=== PATIENT | female | born 1930 | race Caucasian/White ===

== ENCOUNTER 2017-06-15 13:29 | Emergency (ER) | payer OTHER, BC ==
[~2017-06-15] VITALS: Ht 142.2 cm; Wt 62.2 kg
[~2017-06-15 13:29] MED LIST: ACCUPRIL20 MG PO; FLEXERIL10 MG PO; FLOVENT 11120 INHALA IH; LEVAQUIN750 MG PO; PRAVACHOL40 MG PO; PROAIR HFA8.5 GM IH; SPIRIVA1 INHALATI IH; TRAMADOL HCL50 MG PO
[2017-06-15 15:39] VITALS: BP 151/62
== END 2017-06-15 15:40 | disposition home or self-care (01) ==
LOC: EME 13:29
DX: S83.91XA Sprain of unspecified site of right knee, initial encounter (principal); X50.9XXA Other and unspecified overexertion or strenuous movements or postures, initial encounter; Y93.01 Activity, walking, marching and hiking; J44.9 Chronic obstructive pulmonary disease, unspecified; K21.9 Gastro-esophageal reflux disease without esophagitis; I10 Essential (primary) hypertension; Z87.891 Personal history of nicotine dependence; Z86.73 Personal history of transient ischemic attack (TIA), and cerebral infarction without residual deficits; Z88.2 Allergy status to sulfonamides; Z88.8 Allergy status to other drugs, medicaments and biological substances
CPT/HCPCS: 73564; 99281; 99284